=== PATIENT | female | born 1955 | race African-American/Black ===

== ENCOUNTER 2016-11-29 14:37 | Emergency (ER) | payer MEDICARE, OTHER ==
--- NOTE | ~2016-11-29 | CT4 ---
[facility] A Service of [facility] & [facility] RADIOLOGY TEXT RESULTS PATIENT: LASHAUN ZABALA LOCATION: [facility] : 53 UNIT #: [id number] AGE: [address]: Genaro Naranjo MD SEX: F ORDER DR: [id number] [facility] [address] [place], [place] [address] [id number] E MR#: [id number] Acc #: [id number] NAME: LASHAUN ZABALA : 1955 SEX: F STUDY DATE/TIME: 11/29/2016 13:27 UNIT: [facility] ROOM: STUDY DESCRIPTION: CT Abd and Pelv Wo Cont Attending Physician: Genaro Naranjo M.D. Ordering Physician: Genaro Naranjo M.D. Primary Care Physician: Oral Ribera M.D. MEDICAL IMAGING REPORT This report is preliminary unless electronic signature is present EXAM CT of the abdomen and pelvis without contrast. INDICATION Abdominal mass right lower quadrant pain off and for 1 week. Worse since yesterday. TECHNIQUE This CT exam was performed with one or more of the following radiation dose reduction techniques: automatic exposure control, adjustment of mA and/or kV according to patient size, and iterative reconstruction. Axial CT images were obtained from dome of the diaphragm through symphysis pubis. No oral or intravenous contrast material was administered. FINDINGS Images through the lung bases demonstrate some dependent atelectasis. The patient does have a laparoscopic gastric band. There is no convincing evidence of slippage or low-attenuation lesions seen within the lateral hepatic segment may reflect a cyst. Adrenal glands and pancreas are unremarkable as is the gallbladder. Kidneys are within normal limits. Uterus and urinary bladder appear normal. There is no evidence of mechanical bowel obstruction. I think I can see the appendix, and I do not see any evidence of acute appendicitis. No free fluid or adenopathy is seen within the pelvis. No new soft tissue abnormalities are seen. No aggressive osseous abnormalities are identified. IMPRESSION 1. No definite acute intraabdominal or intrapelvic process is identified to account the patient's symptomatology. Patient is status post laparoscopic gastric banding procedure. The band does appear to STS. [facility] A Service of [facility] & [facility] RADIOLOGY TEXT RESULTS PATIENT: LASHAUN ZABALA LOCATION: [facility] : 53 UNIT #: [id number] AGE: [address]: Genaro Naranjo MD SEX: F ORDER DR: project in expected position with no convincing evidence of slippage. 2. Probable left hepatic cysts. 3. The appendix is visualized and is within normal limits. Dictated by... Patricia Buckner M.D. THIS IS AN ELECTRONICALLY VERIFIED REPORT Patricia Buckner M.D. at 11/30/2016 12:26 PM AFF/macrina TD: 11/29/2016 19:33 JOB #: [id number] MEDICAL IMAGING REPORT Page 1 of 1 COPY
[2016-11-29 11:57] LABS: BASOPHIL# 0.1 X10e3 (0-0.3); BASOPHIL% 1.4 % (0-2.5); EOSINOPHIL# 0.3 X10e3 (0-0.7); EOSINOPHIL% 3.2 % (0.0-7.0); HEMATOCRIT 40.6 % (35.0-45.0); HEMOGLOBIN 12.2 gm/dL (12.0-16.0); LYMPHOCYTE% 23.9 % (17.0-45.0); MEAN CELL VOLUME 77.1 FL (83-96); MEAN CORPUSCULAR HEMOGLOBIN 23.1 PG (28-34); MEAN PLATELET VOLUME 8.3 FL (6.5-11.5); MONOCYTE# 0.7 X10e3 (0-1.0); MONOCYTE% 7.9 % (3.0-12.0); NEUTROPHIL# 5.2 X10e3 (1.5-7.1); NEUTROPHIL% 63.6 % (40-75); PLATELET COUNT 255 X10e3 (140-420); RED BLOOD COUNT 5.27 X10e (3.90-5.30); RED CELL DISTRIBUTION WIDTH 17.3 % (11.0-15.5); WHITE BLOOD COUNT 8.2 X10e3 (4.0-10.5)
[2016-11-29 11:59] LABS: DIFF IND NO
[2016-11-29 12:14] LABS: ALBUMIN SERUM 3.5 g/dL (3.5-5.0); BILIRUBIN, DIRECT 0.1 mg/dL (0.0-0.2); BILIRUBIN,INDIRECT 0.6 mg/dL (0.0-0.9); BILIRUBIN,TOTAL 0.7 mg/dL (0.2-2.0); CALCIUM SERUM 9.1 mg/dL (8.4-10.2); POTASSIUM 3.7 mmol/L (3.5-5.1); PROTEIN TOTAL SERUM 7.3 g/dL (6.0-8.3)
[2016-11-29 13:11] LABS: URINE SOURCE CLEAN CATCH
[2016-11-29 13:22] LABS: URINE APPEARANCE CLEAR; URINE BILIRUBIN NEG (NEG); URINE BLOOD NEG (NEG); URINE COLOR YELLOW; URINE GLUCOSE NEG (NEG); URINE KETONE NEG (NEG); URINE LEUKOCYTE ESTERASE NEG (NEG); URINE NITRATE NEG (NEG); URINE PROTEIN NEG (NEG); URINE SPECIFIC GRAVITY 1.009 (1.003-1.035); URINE UROBILINOGEN 0.2 MG/DL (NEG)
[2016-11-29 13:29] LABS: CULTURE INDICATED? NO
[~2016-11-29 14:37] MED LIST: ACCUPRIL PO; ACIPHEX20 MG PO; AMLODIPINE BESY10 MG PO; ANTIBIOTIC; ANTIDEPRESSANT; ANTIVERT PO; ANUSOL-HC CREAM30 G1 EXT; ASPIRIN81 M1 PO; ATENOLOL PO; AUGMENTIN PO; B COMPLEX1 CA1 PO; CARAFATE1 G PO; CELEBREX PO; CIPRO250 MG PO; COUMADIN5 MG PO; COZAAR; COZAAR PO; COZAAR100 MG PO; CYANOCOBALAM1000 MCG PO; DARVOCET-N 1001 TAB PO; FEOSOL PO; FEROSUL325 ( 651 PO; FERROUS SULFATE PO; FLEXERIL10 MG PO; FOLIC ACID1 MG PO; GLYNASE PO; HYDRALAZINE HCL25 MG PO; HYDROCODON-ACE1 EAC4 PO; IBUPROFEN800 MG PO; IMDUR PO; JANUVIA PO; K-LOR20 MEQ PO; LASIX PO; LEVAQUIN750 MG PO; LEVEMIR; LEVEMIR SQ; LEVEMIR100 UNITS/ SUBQ; LEVOTHROID200 MCG PO; LEVOXYL200 MC1 PO; LOPRESSOR PO; LORTAB 7.5-5001 TAB PO; LOSARTAN POTAS100 MG PO; METFORMIN HCL500 M2; METFORMIN HCL500 M2 PO; METFORMIN PO; MINOXIDIL10 MG PO; NEURONTIN600 MG PO; NORVASC PO; NORVASC10 MG PO; NOVOLIN R100 U/ML; NOVOLIN R100 U/ML INJ; NOVOLIN R100 U/ML SUBQ; NOVOLIN R100 UNITS/; NOVOLOG100 UNITS/ SUBQ; ONGLYZA5 MG PO; PAIN MEDICATION; PEN-VEE K PO; PHENERGAN25 MG PO; PLAVIX PO; PRAVACHOL PO; PRILOSEC20 M1 PO; PRILOSEC20 MG PO; PROTONIX PO; SERTRALINE HCL50 MG PO; SIMVASTATIN40 MG PO; SYNTHROID PO; SYNTHROID300 MCG PO; TOPROL XL100 MG PO; TRIAMCINOLONE A15 G3 TOP; ULTRAM PO; VITAMIN B-COMPL1 CA1 PO; VOLTAREN50 MG PO; ZESTORETIC 20/21 TAB PO; ZITHROMAX PO; ZOCOR20 MG PO; [UNRECOGNIZED DRUG - REMARK]
== END 2016-11-29 15:27 | disposition home or self-care (01) ==
LOC: CED 14:37
PROVIDERS: Emergency Medicine
DX: R10.31 Right lower quadrant pain (principal); I48.91 Unspecified atrial fibrillation; E11.9 Type 2 diabetes mellitus without complications; I10 Essential (primary) hypertension; I25.2 Old myocardial infarction
CPT/HCPCS: 36415; 74176; 80048; 80076; 81003; 82150; 83690; 85025; 96374; 99284; J2270

== ENCOUNTER 2016-12-17 15:32 | Emergency (ER) | payer MEDICARE, OTHER ==
--- NOTE | ~2016-12-17 | CT4 ---
[facility] A Service of [facility] & [facility] RADIOLOGY TEXT RESULTS PATIENT: LASHAUN ZABALA LOCATION: [facility] : 53 UNIT #: [id number] AGE: [address]: Dean Armstrong DO SEX: F ORDER DR: [id number] [facility] [address] [place], [place] [address] [id number] E MR#: [id number] Acc #: [id number] NAME: LASHAUN ZABALA : 1955 SEX: F STUDY DATE/TIME: 12/17/2016 16:55 UNIT: [facility] ROOM: STUDY DESCRIPTION: CT Abd and Pelv Wo Cont Attending Physician: Dean Armstrong D.O. Ordering Physician: Dean Armstrong D.O. Primary Care Physician: Oral Ribera M.D. MEDICAL IMAGING REPORT This report is preliminary unless electronic signature is present EXAM CT of the abdomen and pelvis without IV contrast. COMPARISON November 29, 2016, and May 30, 2011. INDICATION 61-year-old female with diffuse abdominal pain and vaginal bleeding for [address] exam was performed with one or more of the following radiation dose reduction techniques: automatic exposure control, adjustment of mA and/or kV according to patient size, and iterative reconstruction. FINDINGS Axial CT imaging of the abdomen and pelvis was performed without IV contrast. Lack of IV contrast limits evaluation of adenopathy, vasculature and viscera. There is thickening of the skin over the right anterior abdominal pannus, stable from November 29, 2016, likely reflecting chronic cellulitis. Degenerative changes are noted at the sacroiliac joints and at the facets at multiple levels of the lumbar spine. There is also multilevel degenerative disc disease of the lumbar spine. There is a small posterior disc osteophyte complex at L4-L5. No acute fractures or suspicious osseous lesions. Gastric Lap-Band device is noted, without evidence of complication. No acute findings in the imaged lower chest. There is a low-density lesion in the left hepatic lobe which may represent focal fat or an adenoma measuring up to 1.4 cm. This has negative Hounsfield units. There are no findings of cirrhosis. Gallbladder, spleen and adrenal glands are unremarkable. There is mild fatty replacement of the pancreas. Detailed evaluation of abdominal organs is limited by patient body habitus and lack of IV contrast. There is an apparent fat-containing lesion in the inferior pole of the left kidney [facility] A Service of [facility] & [facility] RADIOLOGY TEXT RESULTS PATIENT: LASHAUN ZABALA LOCATION: [facility] : 53 UNIT #: [id number] AGE: [address]: Dean Armstrong DO SEX: F ORDER DR: measuring up to 2.4 cm suggesting an angiomyolipoma. No evidence of associated hemorrhage. There is no renal or ureteral calculus. No hydronephrosis or hydroureter. There are bilateral pelvic phleboliths. CT appearance of the uterus is unremarkable. Calcium density at the periphery of the left ovary appears new from May 30, 2011, but stable from November 29, 2016. This is nonspecific. No evidence of associated discrete lesion is seen on this exam. Urinary bladder and uterus are unremarkable. No evidence of bowel obstruction. Normal caliber of the abdominal aorta. No free fluid or pneumoperitoneum. No evidence of adenopathy. The appendix is not definitely seen and may be surgically absent. There are no secondary findings of an acute appendicitis. IMPRESSION 1. Exam is limited by patient body habitus and underpenetration. 2. No definite acute abnormalities seen in the abdomen, pelvis or imaged lower chest. 3. Findings most consistent with focal fat versus an adenoma in the left hepatic lobe. There are no findings of cirrhosis. 4. 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 5. Peripheral calcification associated the left ovary, nonspecific finding. This is unchanged from most recent comparison of earlier this month, but it appears new from 2010. This is nonspecific. Ovaries are typically not well evaluated on CT and if indicated outpatient pelvic ultrasound could be performed for further characterization. The left ovary is normal in size and shape. Dictated by... Roberto Carlos Antonio M.D. THIS IS AN ELECTRONICALLY VERIFIED REPORT Roberto Carlos Antonio M.D. at 12/20/2016 3:24 PM AVIS/magi TD: 12/17/2016 18:50 JOB #: [id number] MEDICAL IMAGING REPORT Page 1 of 1 COPY
[2016-12-17 15:49] LABS: BASOPHIL# 0.1 X10e3 (0-0.3); BASOPHIL% 1.3 % (0-2.5); EOSINOPHIL# 0.2 X10e3 (0-0.7); EOSINOPHIL% 2.3 % (0.0-7.0); HEMATOCRIT 41.9 % (35.0-45.0); HEMOGLOBIN 12.8 gm/dL (12.0-16.0); LYMPHOCYTE# 1.8 X10e3 (1.0-3.5); LYMPHOCYTE% 20.1 % (17.0-45.0); MEAN CELL VOLUME 76.9 FL (83-96); MEAN CORPUSCULAR HEMOGLOBIN 23.4 PG (28-34); MEAN CORPUSCULAR HGB CONC 30.5 g/dL (30-36); MEAN PLATELET VOLUME 8.3 FL (6.5-11.5); MONOCYTE# 0.6 X10e3 (0-1.0); MONOCYTE% 7.1 % (3.0-12.0); NEUTROPHIL# 6.2 X10e3 (1.5-7.1); NEUTROPHIL% 69.2 % (40-75); PLATELET COUNT 311 X10e3 (140-420); RED BLOOD COUNT 5.45 X10e (3.90-5.30); RED CELL DISTRIBUTION WIDTH 17.6 % (11.0-15.5); WHITE BLOOD COUNT 8.9 X10e3 (4.0-10.5)
[2016-12-17 15:50] LABS: DIFF IND NO
[2016-12-17 15:55] LABS: INR 2.4; PARTIAL THROMBOPLASTIN TIME 40.4 SECONDS (23.5-31.3); PROTHROMBIN TIME (PATIENT) 26.5 SECONDS (9.6-11.5)
[2016-12-17 16:02] LABS: ALBUMIN SERUM 3.6 g/dL (3.5-5.0); BILIRUBIN, DIRECT 0.1 mg/dL (0.0-0.2); BILIRUBIN,INDIRECT 0.5 mg/dL (0.0-0.9); BILIRUBIN,TOTAL 0.6 mg/dL (0.2-2.0); CALCIUM SERUM 9.1 mg/dL (8.4-10.2); POTASSIUM 3.9 mmol/L (3.5-5.1); PROTEIN TOTAL SERUM 7.7 g/dL (6.0-8.3)
[2016-12-17 16:12] LABS: URINE SOURCE CLEAN CATCH
[2016-12-17 16:20] LABS: URINE APPEARANCE CLEAR; URINE BILIRUBIN NEG (NEG); URINE BLOOD NEG (NEG); URINE COLOR YELLOW; URINE GLUCOSE NEG (NEG); URINE KETONE NEG (NEG); URINE LEUKOCYTE ESTERASE NEG (NEG); URINE NITRATE NEG (NEG); URINE PH 6.5 (5-8); URINE PROTEIN NEG (NEG); URINE SPECIFIC GRAVITY 1.011 (1.003-1.035); URINE UROBILINOGEN 0.2 MG/DL (NEG)
[2016-12-17 16:24] LABS: CULTURE INDICATED? NO
[2016-12-17] MEDS ORDERED: NORVASC10 MG PO (18:43)
[2016-12-17] MEDS ORDERED: FOLIC ACID1 MG PO (18:43)
[2016-12-17] MEDS ORDERED: LOSARTAN POTAS100 MG PO (18:44)
[2016-12-17] MEDS ORDERED: COUMADIN5 MG PO (18:45)
[2016-12-17] MEDS ORDERED: HYDRALAZINE HCL50 MG PO (18:46)
[2016-12-17] MEDS ORDERED: HYDROCHLOROTHIA25 MG PO (18:46)
[2016-12-17] MEDS ORDERED: COUMADIN2.5 MG PO (18:46)
[2016-12-17] MEDS ORDERED: TOPROL XL200 MG PO (18:47)
[2016-12-17] MEDS ORDERED: GABAPENTIN600 MG PO (18:47)
[2016-12-17] MEDS ORDERED: LEVEMIR100 UNITS/ SUBQ (18:49)
[2016-12-17] MEDS ORDERED: NOVOLIN R100 UNITS/ SUBQ (18:50)
[2016-12-17] MEDS ORDERED: PROTONIX PO (18:51)
[2016-12-17] MEDS ORDERED: LEVOXYL200 MCG PO (18:51)
== END 2016-12-17 19:21 | disposition home or self-care (01) ==
LOC: CED 15:32
PROVIDERS: Emergency Medicine
DX: R10.9 Unspecified abdominal pain (principal); K21.9 Gastro-esophageal reflux disease without esophagitis; Z88.0 Allergy status to penicillin; Z79.899 Other long term (current) drug therapy
CPT/HCPCS: 36415; 74176; 80048; 80076; 81003; 83690; 85025; 85610; 85730; 86850; 86900; 86901; 96374; 96375; 99284; J2270; J2405

== ENCOUNTER → 2017-03-08 | Outpatient (CLI) | payer MEDICARE, OTHER ==
[~2017-03-08] MED LIST changes: +COUMADIN2.5 MG PO; +GABAPENTIN600 MG PO; +HYDRALAZINE HCL50 MG PO; +HYDROCHLOROTHIA25 MG PO; +LEVOXYL200 MCG PO; +NOVOLIN R100 UNITS/ SUBQ; +TOPROL XL200 MG PO
--- NOTE | ~2017-03-08 | CR63 ---
[facility]. [facility] A Service of [facility] & [facility] RADIOLOGY TEXT RESULTS PATIENT: LASHAUN ZABALA LOCATION: [facility] : 53 UNIT #: [id number] AGE: [address]: Oral Ribera MD SEX: F ORDER DR: [id number] [address] [address] [id number] O MR#: [id number] Acc #: [id number] NAME: LASHAUN ZABALA : 1955 SEX: F STUDY DATE/TIME: 03/08/2017 15:16 UNIT: [facility] ROOM: STUDY DESCRIPTION: CR Chest 2 View Attending Physician: Oral Ribera M.D. Referring Physician: Oral Ribera M.D. Ordering Physician: Oral Ribera M.D. Primary Care Physician: Oral Ribera M.D. MEDICAL IMAGING REPORT This report is preliminary unless electronic signature is present. EXAM Chest 03/08/2017 HISTORY 61-year-old woman preop cyst removal from cervix, cramping pain. Symptoms x4 months. COMPARISON Chest 02/14/2013. FINDINGS Two-view chest demonstrates large body habitus. There is mild cardiomegaly. Hilar structures are preserved. Bilateral lungs are clear. IMPRESSION Large body habitus with low lung volumes. Mild cardiomegaly. No acute finding. Dictated by... Kael White M.D. THIS IS AN ELECTRONICALLY VERIFIED REPORT Kael White M.D. at 03/09/2017 7:14 AM ALMITA/fior TD: 03/08/2017 22:54 JOB #: [id number] MEDICAL IMAGING REPORT Page 1 of 1
== END | disposition home or self-care (01) ==
LOC: SRAD 15:09
DX: Z01.818 Encounter for other preprocedural examination (principal); N88.8 Other specified noninflammatory disorders of cervix uteri; I51.7 Cardiomegaly
CPT/HCPCS: 71020